=== PATIENT | female | born 1940 | race Caucasian/White ===

== ENCOUNTER 2025-03-24 14:54 | Emergency (ER) | payer MEDICARE, SELFPAY ==
[2025-03-24 15:01] VITALS: BP 104/56; BMI 24.9
[2025-03-24 15:05] VITALS: BP 104/56
[2025-03-24 15:25] LABS: % Basophils 0.4 % (0-2); % Eosinophils 1.8 % (0-6); % Immature Granulocytes 0.4 % (0-0.5); % Lymphocytes 25.3 % (20.5-51.1); % Monocytes 5.4 % (1.7-9.3); % Neutrophils 66.7 % (42.2-75.2); Absolute Eosinophils 0.2 10^3/uL (0-0.7); Absolute Lymphocytes 2.1 10^3/uL (1.2-3.4); Absolute Monocytes 0.5 10^3/uL (0.1-0.6); Absolute Neutrophils 5.7 10^3/uL (1.4-6.5); Hematocrit 35.9 % (37.0-47.0); Hemoglobin 12.2 g/dL (12.0-16.0); Mean Corpuscular Hgb 28.2 pg (27.0-31.0); Mean Corpuscular Volume 82.9 fL (81.0-99.0); Mean Platelet Volume 10.8 fL (7.4-10.4); Nucleated Red Blood Cells % 0 %; Platelet Count 264 10^3/uL (130-400); Red Blood Cell Count 4.33 10^6/uL (4.20-5.40); Red Cell Dist. Width 13.1 % (11.5-14.5); White Blood Cell Count 8.5 10^3/uL (4.8-10.8)
[2025-03-24 15:42] LABS: ALT (SGPT) 13 U/L (0-35); AST (SGOT) 19 U/L (14-36); Albumin 3.7 g/dl (3.5-5.0); Alkaline Phosphatase 66 U/L (38-126); Blood Urea Nitrogen 13 mg/dl (7-17); Calcium 9.3 mg/dl (8.4-10.2); Carbon Dioxide 27 mmol/L (22-30); Chloride 104 mmol/L (98-107); Estimated Creatinine Clearance 46 ml/min; Glucose 134 mg/dl (70-99); Lipase 58 U/L (23-300); Potassium 4.1 mmol/L (3.5-5.1); Sodium 139 mmol/L (135-145); Total Bilirubin 0.6 mg/dl (0.2-1.3); Total Protein 6.2 g/dl (6.3-8.2); eGFR > 60.00
--- NOTE | 2025-03-24 15:44 | ED.GENMED ---
History of Present Illness
General
Chief Complaint: Fainting/Passed Out
Time Seen by Provider: 03/24/25 15:43
History of Present Illness
History of Present Illness:
TIME OF INITIAL ENCOUNTER: 3:50 PM
HPI: The patient normally resides at a dementia unit but was at her daughter's backyard and the daughter noticed that she had a unresponsive episode. Just before this, the patient started having rather severe abdominal pain. She started drooling
it would not respond at all. Daughter, who states she is a nurse, could not find a pulse. She was ready to start CPR. The patient then started to come to but very slowly. There is no shaking/seizure-like activity however she did become
incontinent of urine. This is not normal for her. Although she has dementia, daughter states that she is normally 'a talker' and she is barely talking now
EXAM:
GENERAL: Appears in no distress
HEENT: Moist oral mucosa
CARDIOVASCULAR: Regular rate and rhythm
PULMONARY: No respiratory distress, breathing is nonlabored, equal and clear breath sounds
ABDOMEN: Soft and nontender with no peritoneal signs
NEUROLOGIC: The patient has evidence of dementia, not oriented to month or place, strength is equal in all extremities
EXTREMITIES: Moves all extremities equally, no tenderness, no edema
PYSCHIATRIC: Very limited historian, poor insight and judgment
NUMBER AND COMPLEXITY OF PROBLEMS ADDRESSED AT THE ENCOUNTER
� Chronic conditions affecting care: Dementia
� Acute Exacerbation and/or Progression of Chronic Illness: This is an acute problem
� Differential Diagnosis includes: Dysrhythmia, hypoglycemia, electrolyte abnormality, dehydration
AMOUNT AND/OR COMPLEXITY OF DATA TO BE REVIEWED AND ANALYZED
� I performed an independent evaluation of and my interpretation is:
EKG: Sinus 62, normal axis, baseline artifact, nonspecific ST abnormality
CT: CAT scan of the brain shows no acute abnormality and is consistent with somebody who has dementia
X-rays:
Laboratory Studies: CBC normal, chemistries unremarkable
Other:
� Review of other/old records: I reviewed records, the patient was here with abdominal pain in February 2023
� Clinical information was obtained by an independent historian: I spoke to daughters at bedside
� Prescriptions/Medications Considered but not given:
� Further testing considered but not performed:
RISK OF COMPLICATIONS AND/OR MORBIDITY OR MORTALITY OF PATIENT MANAGEMENT
� Social determinants of health affecting care:
� Discussion with other providers:
� Escalation of care including admission/observation vs risk of discharge considered: Urinalysis shows no evidence of infection. She was observed on the monitor for an extended period of time in the Emergency Department. There
has been no changes.
ANY OTHER UPDATES:
I offered and considered having patient kept in the hospital overnight for further evaluation however ultimately daughters wanted to take her home feeling that she could worsen while here in an unknown familiar situation. Patient was able to walk
without assistance in the emergency department in her room.
Past History
Past History
ED Past Medical History: Psychiatric (Dementia)
ED Past Surgical History: Appendectomy and Cholecystectomy
Social History
Tobacco: Non-smoker
Alcohol: Occasional
Personal:
Living: with family
Family History
Family History: Unable to obtain
Phy Exam
Physical Exam
Physical Exam:
See HPI
Course
Orders/Labs/Results
Orders:
Orders
03/24/25 15:10
Complete Blood Count/With Diff Urgent
Comprehensive Metabolic Panel Urgent
Lipase Urgent
Comment: ADD ON
03/24/25 15:13
Add On- LAB Urgent
Tests Added?: lipase
03/24/25 15:15
EKG [Electrocardiogram (*1)] Urgent
Reason for Study: Tachycardia
EKG- Treatment ONCE
03/24/25 15:55
CT Head W/o Iv Contrast Urgent
Comment:
Reason For Exam: unresponsive episode
Straight cath- Treatment ONCE
0.9% Sodium Chloride 500 ml [Nss] 500 ml IV BOLUS
03/24/25 16:58
Urinalysis Reflex To Culture Urgent
Date Specimen was Collected: 03/24/25
Time Specimen was Collected: 15:59
Urine Microscopic Reflex Cult Urgent
Abnormal Lab Results
03/24/25 03/24/25
15:10 16:58
Hct 35.9 L %
(37.0-47.0)
MPV 10.8 H fL
(7.4-10.4)
Glucose 134 H mg/dl
(70-99)
Total Protein 6.2 L g/dl
(6.3-8.2)
Urine Bacteria (Reflex) Few A
(Negative)
Urine Albumin (Reflex) 1+ A
(Neg - Trace)
03/24/25 15:10
03/24/25 15:10
Vital Signs
Initial and Last Documented VS:
Initial Vital Signs
Temp Pulse Resp BP Pulse Ox
36.3 C 82 20 104/56 98
03/24/25 15:01 03/24/25 15:01 03/24/25 15:01 03/24/25 15:01 03/24/25 15:01
Last Documented Vital Signs
Temp Pulse Resp BP Pulse Ox
36.3 C 73 10 128/69 97
03/24/25 15:01 03/24/25 18:15 03/24/25 18:15 03/24/25 17:24 03/24/25 18:15
*Critical Care Note
Total Time (30-74mins, 75-104mins- exclusive of procedures): Not Applicable
ED Attending Note
-
Portions of this chart may have been created with voice recognition software.� Occasional wrong word or��sound alike� substitutions may have occurred due to the inherent limitations of voice recognition software.
Discharge Plan
Departure
Patient Disposition: Home (Routine Discharge)
Date of Disposition: 03/24/25
Time of Disposition: 18:34
Patient with high blood pressure during this ER visit?: Yes
Discharge Problem:
Syncope and collapse
Instructions: Syncope (Fainting) (DC)
Prescriptions:
No Action
ciprofloxacin HCl [Cipro] 250 mg tablet
250 mg PO BID Qty: 7 0RF
Referrals:
Tessy Clark DO [Family Provider] -
Activity Restrictions/Additional Instructions:
Basic blood work is unremarkable. Urinalysis shows no sign of infection. CAT scan of the brain shows no acute abnormality but is consistent with somebody with dementia. She has been on the monitor and monitoring has remained unremarkable. EKG
shows a normal sinus rhythm. Return here if worse or other concerns.
Interventions
Interventions:
*Risk Screen - Suicide Last Done: 03/24/25 15:01
*General Assessment Last Done: 03/24/25 15:01
*Neglect/Abuse Screening Last Done: 03/24/25 15:01
*ED- Fall Risk Assessment Last Done: 03/24/25 15:01
*ED COVID-19 Vaccine History Last Done: 03/24/25 15:01
*Nursing Disposition Last Done: 03/24/25 19:21
ED- Cardiac Assessment Last Done: 03/24/25 19:19
ED- Neurological Assessment Last Done: 03/24/25 19:19
Discharge Date and Time
Print Language: SPANISH
[2025-03-24] MEDS: NSS 500 IV (16:58)
[2025-03-24 17:17] LABS: Urine Albumin 1+ (Neg - Trace); Urine Bilirubin Negative (Negative); Urine Character Clear (Clear); Urine Color Yellow; Urine Glucose Negative (Negative); Urine Ketone Negative (Negative); Urine Leukocyte Negative (Negative); Urine Nitrite Negative (Negative); Urine Occult Blood Negative (Negative); Urine Specific Gravity 1.015 (<1.030); Urine Urobilinogen Negative (Neg - 1+)
[2025-03-24 17:24] VITALS: BP 128/69
[2025-03-24 17:29] LABS: Urine Mucus Many
[2025-03-24 17:30] LABS: Urine Bacteria Few (Negative); Urine Red Blood Cell 0-2 /HPF (0-2); Urine White Cell 0-2 /HPF (0-5)
[2025-03-24 17:32] LABS: Urine Amorphous Seen
== END 2025-03-24 19:21 | disposition home or self-care (01) ==
LOC: EMR 14:54
PROVIDERS: Emergency Medicine; EMERGENCY PHYSICIAN Emergency Medicine; FAMILY PHYSICIAN Family Medicine
DX: R55 Syncope and collapse (principal); F03.90 Unspecified dementia, unspecified severity, without behavioral disturbance, psychotic disturbance, mood disturbance, and anxiety; R32 Unspecified urinary incontinence; Z90.49 Acquired absence of other specified parts of digestive tract
CPT/HCPCS: 99284; 70450; 80053; 81003; 81015; 83690; 85025; 93005

== ENCOUNTER 2025-04-07 10:50 | Emergency (ER) | payer MEDICARE, BC, SELFPAY ==
[2025-04-07 10:58] LABS: Glucose - Point of Care 141 mg/dl (70-99)
[2025-04-07 11:02] VITALS: BP 96/56
[2025-04-07 11:07] VITALS: BP 96/56
[2025-04-07 11:16] VITALS: BMI 27.6
--- NOTE | 2025-04-07 11:23 | ED.GENMED ---
History of Present Illness
General
Chief Complaint: Seizure
Time Seen by Provider: 04/07/25 11:16
History of Present Illness
History of Present Illness:
TIME OF INITIAL ENCOUNTER:
HPI: Earlier today, while out to brunch with her daughters, the patient started swaying [id number] and then had shaking activity when was minimally responsive. Her daughter, and ICU nurse noted right I deviation, the whole episode lasted
approximately 4 minutes. The patient has advanced dementia.
EXAM:
GENERAL: Appears very weak and debilitated
HEENT: Slightly dry oral mucosa, no evidence of tongue
CARDIOVASCULAR: Regular rate and rhythm
PULMONARY: No respiratory distress, breathing is nonlabored, equal and clear breath sounds
ABDOMEN: Soft and nontender with no peritoneal signs
NEUROLOGIC: The patient has evidence of dementia, not oriented to month or place, strength is equal in all extremities and very weak
EXTREMITIES: Moves all extremities weakly but equally
PYSCHIATRIC: Very limited historian, poor insight and judgment
NUMBER AND COMPLEXITY OF PROBLEMS ADDRESSED AT THE ENCOUNTER
� Chronic conditions affecting care: Dementia
� Acute Exacerbation and/or Progression of Chronic Illness: This is an acute problem
� Differential Diagnosis includes: Seizure, intracranial pathology, hypoglycemia, hypotension
AMOUNT AND/OR COMPLEXITY OF DATA TO BE REVIEWED AND ANALYZED
� I performed an independent evaluation of and my interpretation is:
EKG: Sinus 66, nonspecific ST abnormality
CT: CT brain shows no acute abnormality
X-rays:
Laboratory Studies: Initial blood sugar 141
Other:
� Review of other/old records: I reviewed my notes from 2 weeks ago
� Clinical information was obtained by an independent historian: I spoke to the daughters at bedside
� Prescriptions/Medications Considered but not given:
� Further testing considered but not performed:
RISK OF COMPLICATIONS AND/OR MORBIDITY OR MORTALITY OF PATIENT MANAGEMENT
� Social determinants of health affecting care: Lives at home
� Discussion with other providers: Discussed case with Dr. Cortez who recommends starting Keppra
� Escalation of care including admission/observation vs risk of discharge considered: Placing on Keppra at request of neurology. EEG obtained in the emergency department. Basic blood work unremarkable. Initial blood pressure
low and she was given IV fluids. Repeat blood pressure slightly improved now at 103/53 prior to discharge.
ANY OTHER UPDATES:
1:30 PM: On reassessment, the patient is now awake and alert. She is more interactive. She did receive some IV fluids. Dr. Cortez indicates that the EEG showed generalized slowing.
Past History
Past History
ED Past Medical History: Psychiatric (Dementia)
ED Past Surgical History: Appendectomy and Cholecystectomy
Social History
Tobacco: Non-smoker
Alcohol: Occasional
Personal:
Living: with family
Family History
Family History: Unable to obtain
Phy Exam
Physical Exam
Physical Exam:
See HPI
Course
Orders/Labs/Results
Orders:
Orders
04/07/25 11:06
EKG [Electrocardiogram (*1)] Urgent
Reason for Study: Fatigue / Weakness
EKG- Treatment ONCE
04/07/25 11:23
CT Head W/o Iv Contrast Urgent
Comment:
Reason For Exam: sz like activity; R eye deviation
0.9% Sodium Chloride 1000 ml [Nss] 1,000 ml IV BOLUS
04/07/25 11:32
Complete Blood Count/With Diff Urgent
Comprehensive Metabolic Panel Urgent
04/07/25 12:04
EEG Routine Urgent
Reason for Exam: ? Status epilepticus
04/07/25 13:09
Levetiracetam [Keppra] 500 mg PO NOW STA
Abnormal Lab Results
04/07/25 04/07/25
10:57 11:32
Hct 36.9 L %
(37.0-47.0)
MPV 11.2 H fL
(7.4-10.4)
Chloride 110 H mmol/L
(98-107)
Glucose 116 H mg/dl
(70-99)
POC Glucose 141 H mg/dl
(70-99)
04/07/25 11:32
04/07/25 11:32
Vital Signs
Initial and Last Documented VS:
Initial Vital Signs
Pulse Resp BP
65 13 96/56
04/07/25 11:02 04/07/25 11:02 04/07/25 11:02
Last Documented Vital Signs
Temp Pulse Resp BP Pulse Ox
36.4 C 71 14 103/53 97
04/07/25 11:07 04/07/25 13:00 04/07/25 13:00 04/07/25 13:00 04/07/25 13:00
*Critical Care Note
Total Time (30-74mins, 75-104mins- exclusive of procedures): Not Applicable
ED Attending Note
-
Portions of this chart may have been created with voice recognition software.� Occasional wrong word or��sound alike� substitutions may have occurred due to the inherent limitations of voice recognition software.
Discharge Plan
Departure
Patient Disposition: Home (Routine Discharge)
Date of Disposition: 04/07/25
Time of Disposition: 12:36
Patient with high blood pressure during this ER visit?: Yes
Discharge Problem:
Episode of unresponsiveness
Instructions: Seizures, Adult (DC)
Prescriptions:
New
levetiracetam [Keppra] 500 mg tablet
500 mg PO BID Qty: 60 0RF
No Action
ciprofloxacin HCl [Cipro] 250 mg tablet
250 mg PO BID Qty: 7 0RF
Referrals:
Marcelino Cortez MD [Active] -
Tessy Clark DO [Family Provider] -
Activity Restrictions/Additional Instructions:
Dr. Cortez evaluated her in the Emergency Department and recommends that she start Keppra twice daily due to the possibility of seizure. I sent this to the [facility] in [place].
Interventions
Interventions:
*Risk Screen - Suicide Last Done: 04/07/25 11:15
*General Assessment Last Done: 04/07/25 11:15
*Neglect/Abuse Screening Last Done: 04/07/25 11:15
*ED- Fall Risk Assessment Last Done: 04/07/25 11:14
*ED COVID-19 Vaccine History Last Done: 04/07/25 11:14
ED- Cardiac Assessment Last Done: 04/07/25 11:18
ED- Pulmonary Assessment Last Done: 04/07/25 11:17
Discharge Date and Time
Print Language: IRISH
[2025-04-07 11:51] LABS: % Basophils 0.4 % (0-2); % Eosinophils 2.3 % (0-6); % Immature Granulocytes 0.2 % (0-0.5); % Monocytes 6.1 % (1.7-9.3); Absolute Eosinophils 0.2 10^3/uL (0-0.7); Absolute Lymphocytes 1.8 10^3/uL (1.2-3.4); Absolute Monocytes 0.5 10^3/uL (0.1-0.6); Absolute Neutrophils 5.9 10^3/uL (1.4-6.5); Hematocrit 36.9 % (37.0-47.0); Hemoglobin 12.4 g/dL (12.0-16.0); Mean Corp Hgb Conc. 33.6 g/dL (33.0-37.0); Mean Corpuscular Hgb 27.9 pg (27.0-31.0); Mean Corpuscular Volume 82.9 fL (81.0-99.0); Mean Platelet Volume 11.2 fL (7.4-10.4); Nucleated Red Blood Cells % 0 %; Platelet Count 227 10^3/uL (130-400); Red Blood Cell Count 4.45 10^6/uL (4.20-5.40); White Blood Cell Count 8.4 10^3/uL (4.8-10.8)
[2025-04-07 11:55] LABS: ALT (SGPT) 12 U/L (0-35); AST (SGOT) 18 U/L (14-36); Alkaline Phosphatase 65 U/L (38-126); Blood Urea Nitrogen 13 mg/dl (7-17); Calcium 9.3 mg/dl (8.4-10.2); Carbon Dioxide 24 mmol/L (22-30); Chloride 110 mmol/L (98-107); Estimated Creatinine Clearance 68 ml/min; Glucose 116 mg/dl (70-99); Potassium 4.2 mmol/L (3.5-5.1); Sodium 139 mmol/L (135-145); Total Bilirubin 0.6 mg/dl (0.2-1.3); Total Protein 6.6 g/dl (6.3-8.2); eGFR > 60.00
[2025-04-07] MEDS: NSS 1000 IV (12:00)
[2025-04-07 12:07] VITALS: BP 100/50
--- NOTE | 2025-04-07 12:29 | CON.NEURO ---
Neuro Assessment/Plan
Assessment
head CT imgs rev'd, moderate diffuse atrophy
good story for a complex partial seizure originating from left temporal given right gaze deviation, right faby's palsy, autonomic symptoms. probably part of her advanced dementia.
check EEG
start Keppra 500 BID
no need for MRI to screen for brain tumor, as if one were seen she would not be a surgical candidate
Consultation
Order
Date of Consultation: 04/07/25
Requesting Provider: Kofi Browne
Reason for Consult: seizure
Subjective/Objective
Subjective Data
Date of Service: April 07, 2025
84 year old woman from home, witnessed seizure. She complained of abdominal discomfort, diaphoresis, right gaze deviation, unresponsive 4 minutes. post ictal confusion 7 minutes with right sided weakness. similar unresponsive episode 03/24 couldn't
find a pulse but she recovered without intervention. events witnessed by dtr who is an ICU nurse
She has Alz with advanced dementia and over the past few months has lost ADL's, however she is active and happy.
Objective Data
Vital Signs
Temp Pulse Resp BP Pulse Ox
36.4 C 63 14 96/56 96
04/07/25 11:07 04/07/25 11:07 04/07/25 11:07 04/07/25 11:07 04/07/25 11:17
Lab Results
04/07/25 11:32
04/07/25 11:32
Sodium 139 mmol/L (135-145) 04/07/25 11:32
Potassium 4.2 mmol/L (3.5-5.1) 04/07/25 11:32
BUN 13 mg/dl (7-17) 04/07/25 11:32
Glucose 116 mg/dl (70-99) H 04/07/25 11:32
Calcium 9.3 mg/dl (8.4-10.2) 04/07/25 11:32
Patient Allergies
Penicillins Allergy (Verified 03/24/25 15:08)
Unknown
Physical Exam
-
lethargic, disoriented, slow to respond
face symmetric
moving upper ext antigravity, lower ext minimally antigravity
+cogwheel rigidity
unable to cooperate with full exam
Medications
-
Home Medications
�Medication �Instructions �Recorded
ciprofloxacin HCl 250 mg tablet 250 mg PO BID uti #7 tabs 02/23/23
(Cipro)
[2025-04-07 13:00] VITALS: BP 103/53
[2025-04-07] MEDS: KEPPRA 500 MG PO (13:12)
--- NOTE | 2025-04-07 13:21 | EEG.RPT ---
Electroencephalogram Report
Recording
Date of EE04/07/25
Type of EEG: Routine
Length of EEG recordin mins
Done with Video Recording: Yes
Patient Status: Emergency Room
Recording Conditions: Awake and Drowsy
Hyperventilation Performed: No
Photic Stimulation Performed: Yes
Report
Clinical Background:�84 year old woman with Alzheimer's dementia, seizure
Introduction: A routine bedside EEG was done using [employer] 10-20 electrode placement protocol.
Background: In the most alert state, there is continuous generalized polymorphic theta activity, 5-6 Hz, with moderate amplitude. There is spontaneous variability and reactivity.�
Sleep: No sleep is seen.�
Focal/epileptiform: There were no focal or epileptiform discharges. No clinical or electrographic seizures occurred during this recording.
Photic stimulation: resulted in no background change. There was no photo myogenic or photoparoxysmal response.�
Impression: continuous generalized slowing
Clinical correlation:�mild generalized cerebral dysfunction, as could be seen with toxic/metabolic encephalopathy, sedation, hyponatremia, hypoxia, hypothyroidism
[2025-04-07 14:00] VITALS: BP 112/54
[2025-04-07 15:09] VITALS: BP 112/54
== END 2025-04-07 15:12 | disposition home or self-care (01) ==
LOC: EMR 10:50
PROVIDERS: EMERGENCY PHYSICIAN Emergency Medicine; FAMILY PHYSICIAN Family Medicine
DX: R40.4 Transient alteration of awareness (principal); R10.9 Unspecified abdominal pain; F03.90 Unspecified dementia, unspecified severity, without behavioral disturbance, psychotic disturbance, mood disturbance, and anxiety; Z88.0 Allergy status to penicillin
CPT/HCPCS: 96360; 99284; 70450; 80053; 82962; 85025; 93005; 95816